=== PATIENT | male | born 1965 | race Caucasian/White ===

== ENCOUNTER 2016-12-18 11:38 | Emergency (ER) | payer OTHER ==
[~2016-12-18] VITALS: Ht 177.8 cm; Wt 104.0 kg
[~2016-12-18 11:38] MED LIST: CIAL5TAB PO
[2016-12-18 11:40] VITALS: BP 144/94; PULSE 98; RESP 16; TEMP 98.4; O2SAT 94
--- NOTE | 2016-12-18 12:05 | PD ---
HPI Chief Complaint: Burn Time Seen by Provider: 12:05 Travel History International Travel<30 days: No Contact w/Intl Traveler<30days: No Traveled to known affect area: No History of Present Illness HPI 51-year-old right-hand dominant male presents to the ED for evaluation of burn to the right hand. Sustained just before arrival. Patient states he was working in the kitchen, stirring mashed potatoes. He states that liquid from the mashed potatoes splashed out landing onto his hand. He immediately went to the sink and washed the wound under cool water. On presentation he denies numbness, tingling, weakness, limitations to range of motion of the extremity. He is unsure of the date of his last tetanus immunization. [facility] Past Medical History Diminished Hearing: No Social History Alcohol Use: No Tobacco Use: No Substance Use: No Allergies-Medications (Allergen,Severity, Reaction): Coded Allergies: Penicillin (Verified Allergy, Unknown, 12/18/16) Reported Meds & Prescriptions Reported Meds & Active Scripts Active Silvadene Topical (Silver Sulfadiazine) 1 % Cream 1 Applic TOPICAL BID Review of Systems Except as stated in HPI: all other systems reviewed are Neg Physical Exam Narrative GENERAL: Well-nourished, well-developed patient. SKIN: Focused skin assessment warm/dry. There is a 2 x 4cm moist, red, blanching , unroofed blister on the posterior aspect of the right hand. There is a ~1cm blister of the posterior aspect, proximal 4th digit. No bleeding of discharge. HEAD: Normocephalic. EYES: No scleral icterus. No injection or drainage. NECK: Supple, trachea midline. No JVD or lymphadenopathy. CARDIOVASCULAR: Regular rate and rhythm without murmurs, gallops, or rubs. RESPIRATORY: Breath sounds equal bilaterally. No accessory muscle use. GASTROINTESTINAL: Abdomen soft, non-tender, nondistended. MUSCULOSKELETAL: No cyanosis, or edema. FOCUSED RIGHT UPPER EXTREMITY EXAM: 2+ radial pulse. Patient retains full, active, painless ROM of the extremity. Strong finger to thumb opposition. Neurovascularly intact. BACK: Nontender without obvious deformity. No CVA tenderness. Data Data Last Documented VS Vital Signs Date Time Temp Pulse Resp B/P Pulse Ox O2 Delivery O2 Flow Rate FiO2 12/18/16 11:40 98.4 98 16 144/94 94 Orders Tetanus/Diphtheria Tox Adult (Tetanus/Di (12/18/16 12:15) Silver Sulfadia 1% Crm (50 Gm) (Silvaden (12/18/16 12:15) MDM Medical Decision Making Medical Screen Exam Complete: Yes Emergency Medical Condition: Yes Differential Diagnosis superficial burn versus superficial partial thickness burn versus abrasion versus other Narrative Course 51-year-old right-hand dominant male presents to the ED for evaluation of burn to the right hand. Sustained just before arrival. Patient states he was working in the kitchen, stirring mashed potatoes. He states that liquid from the mashed potatoes splashed out landing onto his hand. He immediately went to the sink and washed the wound under cool water. On presentation he denies numbness, tingling, weakness, limitations to range of motion of the extremity. He is unsure of the date of his last tetanus immunization. Vitals reviewed. Physical exam reveals a 2 x 4cm moist, red, blanching, unroofed blister on the posterior aspect of the right hand. There is a ~1cm blister of the posterior aspect, proximal 4th digit. No bleeding of discharge. 2+ radial pulse. Patient retains full, active, painless ROM of the extremity. Strong finger to thumb opposition. Neurovascularly intact. Tetanus immunization was updated. The wound was cleaned and dressed with Silvadene and nonstick dressing. Patient was given detailed wound instructions. He is instructed to apply Silvadene twice a day, keep the wound clean, dry, covered, follow up with the PCP. We discussed reasons to return to the ED. He indicated understanding of instructions and is agreeable to the care plan. The patient is stable and discharged home. Diagnosis Primary Impression: Partial thickness burn of back of right hand Qualified Code: T23.261A - Partial thickness burn of back of right hand, initial encounter Referrals: Primary Care Physician Patient Instructions: General Instructions, Superficial Burn (ED) Additional Instructions: Rest, hydrate. Do not change the dressing for 2 days. You may bathe normally. Do not submerge the wound. After bathing pat of wound dry. Allow the wound to air dry for 10-15 minutes. Apply a thin layer of silvadene ointment and a clean, dry dressing. Utilize [id number] pain medications, as described on the label, as needed. Follow-up with your primary care provider this week. Return to the ED for any urgent or emergent medical condition. Med/Other Pt SpecificInfo: Prescription(s) given Scripts Silver Sulfadiazine Topical (Silvadene Topical)1 % Cream1 Applic TOPICAL BID # 50 GM Ref 0 Prov:Jessica Vidal MD 12/18/16 Disposition: 01 DISCHARGE HOME Condition: Stable Kianna Sheehan December 18, 2016 12:05
[2016-12-18] MEDS ORDERED: SILVER SULFADIAZINE 1% CR 50 GM JAR TOPICAL ONE (12:15)
[2016-12-18] MEDS ORDERED: TETANUS/DIPHTHERIA TOXOID ADULT 0.5 ML VIAL IM ONE (12:15)
[2016-12-18] MEDS ORDERED: SILV1CRE20 TOPICAL (12:26)
== END 2016-12-18 12:31 | disposition home or self-care (01) ==
LOC: PHEFT 11:38
DX: T23.261A Burn of second degree of back of right hand, initial encounter (principal); Z23 Encounter for immunization; Z88.0 Allergy status to penicillin; X12.XXXA Contact with other hot fluids, initial encounter
CPT/HCPCS: 16020; 90471; 90714

== ENCOUNTER → 2017-09-15 | Outpatient (CLI) | payer OTHER ==
[~2017-09-15] MED LIST changes: +BROMSYP PO; -CIAL5TAB PO
[2017-09-15 09:53] LABS: ALBUMIN 3.7 GM/DL (3.4-5.0); AST (GOT) 17 U/L (15-37); BICARBONATE 27.8 MEQ/L (21.0-32.0); BLOOD UREA NITROGEN 13 MG/DL (7-18); CHLORIDE 106 MEQ/L (98-107); CREATININE 1.06 MG/DL (0.60-1.30); GLOMERULAR FILTRATION RATE 73 ML/MIN (>89); GLUCOSE,FASTING 108 MG/DL (74-99); SODIUM (NA) 140 MEQ/L (136-145)
[2017-09-15 09:57] LABS: AUTOMATED NEUTROPHIL # 3.8 TH/MM3 (1.8-7.7); BASOPHIL % 0.5 % (0.0-2.0); EOSINOPHIL # 0.1 TH/MM3 (0-0.4); EOSINOPHIL % 2.1 % (0.0-4.0); HEMATOCRIT 45.8 % (39.0-51.0); HEMOGLOBIN 15.6 GM/DL (13.0-17.0); LYMPH % 25.5 % (9.0-44.0); LYMPHOCYTE # 1.6 TH/MM3 (1.0-4.8); MEAN CELL VOLUME 89.1 FL (80.0-100.0); MEAN CORPUSCULAR HEMOGLOBIN 30.4 PG (27.0-34.0); MEAN CORPUSCULAR HGB CONC 34.2 % (32.0-36.0); MEAN PLATELET VOLUME 8.2 FL (7.0-11.0); MONO % 10.6 % (0.0-8.0); MONOCYTE # 0.7 TH/MM3 (0-0.9); NEUT % 61.3 % (16.0-70.0); PLATELET COUNT 253 TH/MM3 (150-450); RED BLOOD COUNT 5.14 MIL/MM3 (4.50-5.90); RED CELL DISTRIBUTION WIDTH 13.2 % (11.6-17.2); WHITE BLOOD COUNT 6.2 TH/MM3 (4.0-11.0)
[2017-09-15 09:58] LABS: ALKALINE PHOSPHATASE 88 U/L (45-117); ALT (GPT) 31 U/L (12-78); TOTAL BILIRUBIN ADULT 0.4 MG/DL (0.2-1.0); TOTAL PROTEIN 7.7 GM/DL (6.4-8.2)
== END ==
LOC: PLAB 07:28
PROVIDERS: ATTEND Family Medicine
DX: F32.89 Other specified depressive episodes (principal); I10 Essential (primary) hypertension; R53.83 Other fatigue
CPT/HCPCS: 36415; 80053; 85025

== ENCOUNTER → 2017-11-26 | Outpatient (CLI) | payer OTHER ==
[~2017-11-26] VITALS: Ht 175.3 cm; Wt 106.8 kg
[~2017-11-26] MED LIST changes: -BROMSYP PO; +CHLORHEXIDINE GLUCONATE 2 % 1 PACK (2 CLOTHS) TOPICAL PRN; +LACTATED RINGER'S 1000 ML IV PRN; +LIDOCAINE HCL 1% PF 5 ML SYRINGE OTHER ONE; +LIDOCAINE HCL 2% 20 ML VIAL ONE; +LORA-392 PO; +METO25TA3 PO; +METOPROLOL TARTRATE 25 MG TAB PO PRN; +POVIDONE IODINE 5% (ANTISEPSIS KIT) 4 APPLICATIONS EACH NARE PRN; +PROPOFOL 200 MG/20 ML AMP IV ONE; +SODIUM CHLORID 0.9% 500 ML IV PRN
[2017-11-26 08:30] VITALS: TEMP 98.3
--- NOTE | 2017-11-26 10:52 | GIPROC ---
[facility] [address] [facility]. [facility], [address] COLONOSCOPY PROCEDURE REPORT EXAM DATE: 11/26/2017 PATIENT NAME: Oscar Isaac MR #: [id number] BIRTHDATE: 1965 ENDOSCOPIST: Jeremias Ballesteros MD ORDER #: [id number] APPLIED BIOLOGY PROFESSOR: Chris Leone and Mayela Mock STATUS: outpatient INDICATIONS: The patient is a 52 yr old male here for a colonoscopy due to high risk patient with personal history of colonic polyps PROCEDURE PERFORMED: Colonoscopy, surveillance MEDICATIONS: None and Per Anesthesia. PREP QUALITY: good ESTIMATED BLOOD LOSS: None CONSENT: The patient understands the risks and benefits of the procedure and understands that these risks include, but are not limited to: sedation, allergic reaction, infection, perforation and/or bleeding. Alternative means of evaluation and treatment include, among others: physical exam, x-rays, and/or surgical intervention. The patient elects to proceed with this endoscopic procedure. medical equipment was checked for proper function. Hand hygiene and appropriate measures for infection prevention was taken. After the risks, benefits and alternatives of the procedure were thoroughly explained, Informed consent was verified, confirmed and timeout was successfully executed by the treatment team. A digital exam was performed and revealed no abnormalities of the rectum The Pentax [id number] endoscope was introduced through the anus and advanced to the cecum, which was identified by both the appendix and ileocecal valve. The instrument was then slowly withdrawn as the colon was fully examined. COLON FINDINGS: Mild diverticulosis was noted in the sigmoid colon. No bleeding was noted from the diverticulosis. The colon mucosa was otherwise normal. Retroflexed views revealed medium internal hemorrhoids The scope was then completely withdrawn from the patient and the procedure terminated. PROCEDURE WITHDRAWAL TIME:10minutes ADVERSE EVENTS: There were no complications. IMPRESSIONS: 1. Mild diverticulosis was noted in the sigmoid colon 2. The colon mucosa was otherwise normal 3. Retroflexed views revealed medium internal hemorrhoids 4. Was performed 5. Revealed no abnormalities of the rectum RECOMMENDATIONS: 1. High fiber diet 2. Follow-up: primary PRN RECALL: Return 5 years Colonoscopy Jeremias Ballesteros MD eSigned: Jeremias Ballesteros MD 11/26/2017 10:52 AM cc: Greg Cates M.D. PATIENT NAME: Oscar Isaac MR#: [id number]
[2017-11-26 10:55] VITALS: BP 114/92; PULSE 83; RESP 18; O2SAT 99
--- NOTE | 2017-11-26 14:02 | EKG ---
Date Performed: 11/26/2017 Time Performed: 08:01:16 PTAGE: 52 years EKG: Sinus rhythm BORDERLINE LEFT AXIS DEVIATION BORDERLINE ECG NO PREVIOUS TRACING DOCTOR: Rowena Nelson Interpretating Date/Time 11/26/2017 13:58:35
== END ==
LOC: HEND 07:44
PROVIDERS: ATTEND Internal Medicine Gastroenterology
DX: Z86.010 Personal history of colon polyps (principal); K57.90 Diverticulosis of intestine, part unspecified, without perforation or abscess without bleeding; I10 Essential (primary) hypertension; K64.8 Other hemorrhoids; Z01.810 Encounter for preprocedural cardiovascular examination
CPT/HCPCS: 93005

== ENCOUNTER → 2017-12-07 | Outpatient (CLI) | payer OTHER ==
[~2017-12-07] MED LIST changes: -CHLORHEXIDINE GLUCONATE 2 % 1 PACK (2 CLOTHS) TOPICAL PRN; -LACTATED RINGER'S 1000 ML IV PRN; -LIDOCAINE HCL 1% PF 5 ML SYRINGE OTHER ONE; -LIDOCAINE HCL 2% 20 ML VIAL ONE; -METOPROLOL TARTRATE 25 MG TAB PO PRN; -POVIDONE IODINE 5% (ANTISEPSIS KIT) 4 APPLICATIONS EACH NARE PRN; -PROPOFOL 200 MG/20 ML AMP IV ONE; -SODIUM CHLORID 0.9% 500 ML IV PRN
[2017-12-07 16:39] LABS: HEMOGLOBIN A1C 5.6 % (4.3-6.0)
== END ==
LOC: PLAB 08:43
PROVIDERS: ATTEND Family Medicine
DX: R73.01 Impaired fasting glucose (principal)
CPT/HCPCS: 36415; 83036

== ENCOUNTER 2017-12-20 08:41 | Emergency (ER) | payer OTHER ==
[~2017-12-20] VITALS: Ht 177.8 cm; Wt 109.0 kg
[2017-12-20 08:46] VITALS: BP 141/86; PULSE 110; RESP 16; TEMP 98.5; O2SAT 95
[2017-12-20] MEDS ORDERED: ACETAMINOPHEN 325 MG TAB PO ONE (09:00)
[2017-12-20] MEDS ORDERED: guaiFENesin/CODEINE SYRUP 200 MG/20 MG/10 ML CUP PO ONE (09:00)
--- NOTE | 2017-12-20 09:02 | PD ---
HPI Chief Complaint: Cold / Flu Symptoms Time Seen by Provider: 08:48 Travel History International Travel<30 days: No Contact w/Intl Traveler<30days: No History of Present Illness HPI 52yo M with no PMH presents to the ED with c/o nasal congestion, throat pain, cough and right ear pain/fullness for 2 days. Said he took his 's amoxicillin and it didnt help. Had the flu in July so wanted to come make sure before it gets worst. Denies any fever, chest pain, sob, n/v, abdominal pain, drooling, focal weakness or numbness. PFSH Past Medical History Cardiovascular Problems: No Diabetes: No Diminished Hearing: No Genitourinary: No Hepatitis: No Immune Disorder: No Musculoskeletal: No Neurologic: Yes (burning left foot) Reproductive: No Respiratory: No Thyroid Disease: No Past Surgical History Body Medical Devices: BACK Gynecologic Surgery: Yes (VASECTOMY) Social History Alcohol Use: No Tobacco Use: No Substance Use: No Allergies-Medications (Allergen,Severity, Reaction): Coded Allergies: Penicillins (Verified Allergy, Unknown, UNKNOWN; MOTHER TOLD HIM HE SHOULD NEVER HAVE IT, 12/20/17) Reported Meds & Prescriptions Reported Meds & Active Scripts Active Tylenol (Acetaminophen) 325 Mg Tab 650 Mg PO Q6H PRN Robitussin Lingering Cold (Dextromethorphan HBr) 15 Mg Cap 30 Mg PO Q6H PRN 5 Days Reported Metoprolol Tartrate 25 Mg Tab 25 Mg PO DAILY Review of Systems Except as stated in HPI: all other systems reviewed are Neg Physical Exam Narrative GENERAL: 52yo M in mild distress. SKIN: Focused skin assessment warm/dry. HEAD: Atraumatic. Normocephalic. EYES: Pupils equal and round. No scleral icterus. No injection or drainage. ENT: Throat: Mild erythema. Uvula midline. No tonsillar exudate. Ears: TM wnl bilaterally. FACE: Mild ttp right maxilla. NECK: No cervical adenopathy that is tender to palpation. CARDIOVASCULAR: Regular rate and rhythm. No murmur appreciated. RESPIRATORY: No accessory muscle use. Clear to auscultation. Breath sounds equal bilaterally. GASTROINTESTINAL: Abdomen soft, non-tender, nondistended. MUSCULOSKELETAL: No obvious deformities. No clubbing. No cyanosis. No edema. NEUROLOGICAL: Awake and alert. No obvious cranial nerve deficits. Motor grossly within normal limits. Normal speech. PSYCHIATRIC: Appropriate mood and affect; insight and judgment normal. Data Data Last Documented VS Vital Signs Date Time Temp Pulse Resp B/P (MAP) Pulse Ox O2 Delivery O2 Flow Rate FiO2 12/20/17 09:56 12/20/17 09:47 98 17 95 Room Air 12/20/17 08:46 98.5 Orders Orders Influenzae A/B Antigen (12/20/17 08:56) Group A Rapid Strep Screen (12/20/17 08:56) Guaifen-Cod 200-20 Mg/10ml Liq (Robituss (12/20/17 09:00) Acetaminophen (Tylenol) (12/20/17 09:00) Strep Culture (Group A) (12/20/17 09:05) Ed Discharge Order (12/20/17 09:56) MDM Medical Decision Making Medical Screen Exam Complete: Yes Emergency Medical Condition: Yes Differential Diagnosis Influenza vs. URI vs. viral sinusitis vs. pharyngitis Narrative Course 52yo well appearing male with cold like symptoms. Pt is afebrile and initially mildly tachycardic but repeat HR normalized. Saturating at 95% on RA and not in respiratory distress. Influenza negative. Group A strep negative. Pt given acetaminophen and robitussin with codeine with improvement of symptoms. Return precautions given. Diagnosis Primary Impression: URI (upper respiratory infection) Qualified Codes: J06.9 - Acute upper respiratory infection, unspecified Patient Instructions: General Instructions Departure Forms: Tests/Procedures Additional Instructions: Please follow up with your primary care physician in 2-3 days. Return to the ED if symptoms worsen. Med/Other Pt SpecificInfo: Prescription(s) given Scripts Acetaminophen (Tylenol) 325 Mg Tab 650 MG PO Q6H Y for PAIN SCALE 1 TO 4, #20 TAB 0 Refills Prov: Stefanie Cronin DO 12/20/17 Dextromethorphan (Robitussin Lingering Cold) 15 Mg Cap 30 MG PO Q6H Y for COUGH for 5 Days, #40 CAP 0 Refills Prov: Stefanie Cronin DO 12/20/17 Disposition: 01 DISCHARGE HOME Condition: Stable Stefanie Cronin DO December 20, 2017 09:02
[2017-12-20 09:07] VITALS: RESP 16
[2017-12-20 09:47] VITALS: PULSE 98; RESP 17; O2SAT 95
[2017-12-20] MEDS ORDERED: ROBICAP2 PO (09:55)
[2017-12-20] MEDS ORDERED: TYLE325T PO (09:55)
== END 2017-12-20 10:07 | disposition home or self-care (01) ==
LOC: PHED 08:41
DX: J06.9 Acute upper respiratory infection, unspecified (principal); Z88.0 Allergy status to penicillin; Z79.899 Other long term (current) drug therapy
CPT/HCPCS: 87081; 87804; 87880; 99283